=== PATIENT | male | born 1985 | race Caucasian/White ===

== ENCOUNTER 2024-06-26 22:37 | Emergency (ER) | payer SELFPAY ==
[2024-06-26 22:39] VITALS: BP 124/93
[2024-06-26 23:11] VITALS: BMI 28.6
--- NOTE | 2024-06-26 23:16 | ED.GENMED ---
History of Present Illness
General
Chief Complaint: Dental Problem
Source: patient
Time Seen by Provider: 06/26/24 23:07
History of Present Illness
History of Present Illness:
39-year-old male with past medical history of ADHD presenting to the emergency department for evaluation of left lower jaw and tooth pain that has been ongoing for about 2 weeks, acutely worse over the last 24 hours. Patient does not have medical
or dental insurance but did go to a dental clinic last week where he was diagnosed with a cracked tooth and was recommended to have tooth extraction and root canal however patient unable to afford at this present time. Patient did complete a course
of amoxicillin and states pain did get better for a few days but returned prompting him to come to the ER this evening. Patient has been taking NSAIDs with minimal relief. Denies any fevers or any infectious symptoms otherwise.
Past History
Past History
ED Past Medical History: Psychiatric
ED Past Surgical History: Orthopedic
Social History
Tobacco: Non-smoker
Alcohol: Occasional
Drug: None
Personal: Single
Living: with family
Review of Systems
Review of Systems
All Other Systems: ROS reviewed and negative except as documented in HPI and ROS
Phy Exam
Physical Exam
Physical Exam:
GENERAL: Alert , in no apparent distress
EYE: conjunctiva clear
Head: Normocephalic atraumatic
NECK: Supple, no lymphadenopathy
ENT: mmm. Cracked left posterior lower molar through the enamel exposing the pulp/nerve. No abscess
LUNGS: no acute respiratory distress
NEUROLOGICAL: Alert and oriented
SKIN: Warm and dry, skin intact.
MUSCULOSKELETAL: well perfused.
PSYCH: Normal and appropriate interaction.
Scores
Heart Failure Risk
Heart Failure Risk Score: Not Applicable
Heart Score for Chest Pain Patients
STEMI patient?: Not applicable
Withdrawal Assessment of Alcohol
Withdrawal Assessment Completed?: Not applicable
Course
Orders/Labs/Results
Orders:
Orders
06/26/24 23:16
Oxycodone/Acetaminophen [Percocet 5/325] 1 tablet PO NOW STA
Vital Signs
Initial and Last Documented VS:
Initial Vital Signs
Temp Pulse Resp BP Pulse Ox
98.2 F 92 16 124/93 98
06/26/24 22:39 06/26/24 22:39 06/26/24 22:39 06/26/24 22:39 06/26/24 22:39
Last Documented Vital Signs
Temp Pulse Resp BP Pulse Ox
98.2 F 92 16 124/93 98
06/26/24 22:39 06/26/24 22:39 06/26/24 22:39 06/26/24 22:39 06/26/24 22:39
MDM/Problems Addressed
Differential Diagnosis Includes:
Cracked tooth, dental caries, dental abscess, no symptoms or findings to suggest Ridge's angina
MDM/Problems Addressed:
39-year-old male presented to ER due to dental pain secondary to a cracked left lower molar. Exam does show the cracked tooth exposing the dentin/pulp. Explained to patient that unable to provide any further dental care here, recently completed
antibiotics so hesitant to restart a second antibiotic. Will treat at this time with short-term course of Percocet. Patient advised on close follow-up with dentist. Return precautions discussed. Stable for discharge home.
*Pulse Oximetry
Patient hypoxic: no
*Critical Care Note
Total Time (30-74mins, 75-104mins- exclusive of procedures): Not Applicable
ED Attending Note
-
Portions of this chart may have been created with voice recognition software.� Occasional wrong word or��sound alike� substitutions may have occurred due to the inherent limitations of voice recognition software.
Discharge Plan
Departure
Patient Disposition: Home (Routine Discharge)
Date of Disposition: 06/26/24
Time of Disposition: 23:16
Patient with high blood pressure during this ER visit?: No
Discharge Problem:
Broken or cracked tooth, nontraumatic
Instructions: Tooth Decay, Adult (DC)
Prescriptions:
New
oxycodone-acetaminophen [Percocet] 5-325 mg tablet
1 tab PO Q6HPRN PRN (Reason: pain) Qty: 6 0RF
No Action
dextroamphetamine-amphetamine [Adderall] 30 MG tablet
30 mg PO DAILY
oxycodone-acetaminophen 5 MG/325 MG tablet
1 tab PO Q4HPRN PRN (Reason: pain) Qty: 5 0RF
Referrals:
UNKNOWN - PT DOES,NOT KNOW [Family Provider] -
Interventions
Interventions:
*Risk Screen - Suicide Last Done: 06/26/24 22:39
*General Assessment Last Done: 06/26/24 23:20
*Neglect/Abuse Screening Last Done: 06/26/24 23:13
*ED- Fall Risk Assessment Last Done: 06/26/24 23:12
*ED COVID-19 Vaccine History Last Done: 06/26/24 23:12
*Nursing Disposition Last Done: 06/26/24 23:24
Discharge Date and Time
Discharge Date/Time: 06/26/24 23:25
Print Language: [place]
[2024-06-26] MEDS: PERCOCET 5/325 1 TABLET PO (23:19)
== END 2024-06-26 23:25 | disposition home or self-care (01) ==
LOC: EMR 22:37
PROVIDERS: EMERGENCY PHYSICIAN Emergency Medicine
DX: K08.89 Other specified disorders of teeth and supporting structures (principal); K03.81 Cracked tooth; F90.9 Attention-deficit hyperactivity disorder, unspecified type; Z59.71 Insufficient health insurance coverage
CPT/HCPCS: 99283

== ENCOUNTER 2025-01-04 18:02 | Emergency (ER) | payer SELFPAY ==
[2025-01-04 18:06] VITALS: BP 143/97
[2025-01-04 18:23] LABS: Hematocrit 39.6 % (39.0-52.0); Hemoglobin 13.5 g/dL (13.0-18.0); Mean Corp Hgb Conc. 34.1 g/dL (33.0-37.0); Mean Corpuscular Volume 90.6 fL (80.0-94.0); Platelet Count 228 10^3/uL (130-400); Red Cell Dist. Width 12.6 % (11.5-14.5)
[2025-01-04 18:37] LABS: ALT (SGPT) 53 U/L (0-50); AST (SGOT) 37 U/L (17-59); Albumin 4.5 g/dl (3.5-5.0); Alkaline Phosphatase 48 U/L (38-126); Blood Urea Nitrogen 16 mg/dl (9-20); Calcium 9.5 mg/dl (8.4-10.2); Carbon Dioxide 28 mmol/L (22-30); Chloride 104 mmol/L (98-107); Glucose 95 mg/dl (70-99); Potassium 4.3 mmol/L (3.5-5.1); Sodium 136 mmol/L (135-145); Total Protein 7.4 g/dl (6.3-8.2); eGFR > 60.00
[2025-01-04 18:42] LABS: COVID-19 Antigen Negative (Negative)
[2025-01-04 18:46] LABS: Nucleated Red Blood Cells % 0 % (-)
[2025-01-04 22:06] VITALS: BMI 26.2
[2025-01-04 22:09] VITALS: BP 129/87
--- NOTE | 2025-01-04 22:18 | ED.GENMED ---
History of Present Illness
General
Chief Complaint: Fatigue
Source: patient
Exam Limitations: none
Time Seen by Provider: 01/04/25 21:27
Nursing documentation reviewed up to this point in time: agreed with
History of Present Illness
History of Present Illness:
Patient is a 39-year-old male who presents to the emergency department for evaluation of fatigue X 1 week. 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 He reports on
and off chills and sweats despite the cooler weather at work. He he feels that heavy lifting that was once relatively easy has become much more difficult over the past week. No exertional chest pain or shortness of breath.
He denies any fever, headache, or neck pain. He denies any productive cough, abdominal pain or vomiting, urinary symptoms. He has not noticed any bug bites or rashes.
He does have some concern for Lyme disease as he is a skip hoist engineer and works outdoors however has not had any known contact with ticks.
No known sick contacts.
Past History
Past History
ED Past Medical History: Psychiatric
ED Past Surgical History: Orthopedic
Social History
Tobacco: Non-smoker
Alcohol: Occasional
Drug: None
Personal: Single
Living: with family
Review of Systems
Review of Systems
Allergies reviewed?: Yes
All Other Systems: ROS reviewed and negative except as documented in HPI and ROS
Phy Exam
Physical Exam
Physical Exam:
Vitals: Hypertensive, otherwise vital signs stable. Afebrile
General: Patient is very well appearing, no acute distress. Nontoxic appearing
Skin: Small area of contact dermatitis on right volar wrist without any overlying cellulitis. No other rashes noted.
Head: Normocephalic, atraumatic
Eyes: Sclera nonicteric. EOMs intact. No nystagmus.
Throat: Protecting airway
Neck: Normal ROM, no cervical spine tenderness, no meningismus
Cardiac: Regular rate and rhythm, no murmurs.
Pulm: Normal respiratory effort, no wheezes, rales, rhonchi heard on exam
Abdomen: Abdomen soft and nontender.
Extremities: No evidence of cyanosis or edema. Bilateral upper and lower extremities atraumatic and nontender with full range of motion and joints. No obvious joint effusions or erythema.
Neuro: AAOx3. Grossly intact.
Psychiatric: Normal affect.
Course
Orders/Labs/Results
Orders:
Orders
01/04/25 18:15
COVID-19 Antigen Urgent
Source: Nasal Swab
Complete Blood Count/With Diff Urgent
Comprehensive Metabolic Panel Urgent
Creatine Phosphokinase Urgent
Comment: ADD ON
Lyme Progressive Urgent
Monotest Urgent
Comment: ADD ON
01/04/25 21:27
Add On- LAB Urgent
Tests Added?: monospot
01/04/25 22:18
Add On- LAB Urgent
Tests Added?: CPK
Electrocardiogram (*1) Urgent
Reason for Study: Fatigue / Weakness
EKG- Treatment ONCE
01/04/25 22:25
Babesia Smear [Blood Parasites] Urgent
JORGE Source: Blood/Venous
Specimen Description:
01/04/25 23:05
0.9% Sodium Chloride 1000 ml [Nss] 1,000 ml IV BOLUS
Abnormal Lab Results
01/04/25
18:15
RBC 4.37 L 10^6/uL
(4.70-6.10)
Neutrophils % 27.9 L %
(42.2-75.2)
Lymphocytes % 58.5 H %
(20.5-51.1)
Monocytes % 9.6 H %
(1.7-9.3)
ALT 53 H U/L
(0-50)
Creatine Kinase 300 H U/L
(55-170)
01/04/25 18:15
01/04/25 18:15
Vital Signs
Initial and Last Documented VS:
Initial Vital Signs
Temp Pulse Resp BP Pulse Ox
98.0 F 73 16 143/97 97
01/04/25 18:06 01/04/25 18:06 01/04/25 18:06 01/04/25 18:06 01/04/25 18:06
Last Documented Vital Signs
Temp Pulse Resp BP Pulse Ox
97.9 F 58 18 140/98 99
01/04/25 23:20 01/04/25 23:20 01/04/25 23:20 01/04/25 23:20 01/04/25 23:20
MDM/Problems Addressed
Differential Diagnosis Includes:
Not limited to: Acute dehydration, viral illness, tickborne illness, rhabdomyolysis, cardiac arrhythmia, etc.
MDM/Problems Addressed:
39 year-old male presenting with one week of fatigue and diffuse joint pains. No headache, neck pain, fever, rash. 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 Vitals and physical exam as above. Patient well appearing and nontoxic. Abdomen benign.
Cardio/pulmonary assessment unremarkable. No evidence of rash. He has no obvious joint effusions with full range of motion.
Differential broad. Considered viral illness, dehydration, tick borne illness, etc.
ED plan: labs, viral studies, CK. Will send test for Lyme disease and babesiosis.
Update: CBC and chemistry without clinically significant abnormalities. Viral studies negative include Covid, influenza, mono. CPK was mildly elevated to 300. This is likely secondary to dehydration, which may also be contributing to patients other
symptoms. Will give liter of IV fluids.
Update: Patient receive 1L IVF and feels well. No evidence of rash or current infectious process. Do not feel antibiotics indicated at this time. Will discharge with instructions to stay well hydrated. Reviewed return precautions. Will contact
patient if lyme or babesiosis is positive. Patient comfortable with plan.
Chronic conditions affecting care:
N/A
Acute Exacerbation and/or Progression of Chronic Illness:
N/A
*Pulse Oximetry
SaO2: 100
Oxygen Mode of Delivery: Room air
Patient hypoxic: no
*EKG
Interpreted by ED Provider?: NA
*Health Administration Teacher Interpretation
Rate: Health Administration Teacher- N/A
*Critical Care Note
Total Time (30-74mins, 75-104mins- exclusive of procedures): Not Applicable
ED Attending Note
-
Portions of this chart may have been created with voice recognition software.� Occasional wrong word or��sound alike� substitutions may have occurred due to the inherent limitations of voice recognition software.
Discharge Plan
Departure
Patient Disposition: Home (Routine Discharge)
Date of Disposition: 01/04/25
Time of Disposition: 23:19
Patient with high blood pressure during this ER visit?: Yes
Condition: Good
Covid-19: Negative COVID-19
Discharge Problem:
Fatigue, Dehydration
Instructions: Fatigue (DC), Dehydration in adults - ED (DC), BLOOD PRESSURE
Prescriptions:
No Action
dextroamphetamine-amphetamine [Adderall] 30 MG tablet
30 mg PO DAILY
oxycodone-acetaminophen 5 MG/325 MG tablet
1 tab PO Q4HPRN PRN (Reason: pain) Qty: 5 0RF
oxycodone-acetaminophen [Percocet] 5-325 mg tablet
1 tab PO Q6HPRN PRN (Reason: pain) Qty: 6 0RF
Referrals:
Joseph Erazo DO [Family Provider, Internal Medicine] - Follow up in 5-7 days
Activity Restrictions/Additional Instructions:
RETURN TO THE EMERGENCY DEPARTMENT WITH ANY FEVERS, SEVERE HEADACHE OR NECK PAIN, ABDOMINAL/BACK PAIN, DIFFICULTIES WITH URINATION, SIGNS OF SEVERE DEHYDRATION, WORSENING IN CURRENT SYMPTOMS, OR ANY OTHER SYMPTOMS CONCERNING TO YOU
- As discussed�your viral studies including mono, COVID, influenza were negative in the emergency department. We did send studies for Lyme disease and babesiosis, and we will contact you if these are positive.
- You were given a liter of IV fluids. Please stay well-hydrated at home.
- Follow-up with your primary care provider for repeat lab work and to ensure values normalize
Monitor your symptoms closely and return to the emergency department with any acute worsening/new symptoms or any other concerns
Interventions
Interventions:
*Risk Screen - Suicide Last Done: 01/04/25 22:10
*General Assessment Last Done: 01/04/25 22:10
*Neglect/Abuse Screening Last Done: 01/04/25 22:10
*ED- Fall Risk Assessment Last Done: 01/04/25 22:10
*ED COVID-19 Vaccine History Last Done: 01/04/25 22:10
*Nursing Disposition Last Done: 01/05/25 00:10
Discharge Date and Time
Discharge Date/Time: 01/05/25 00:17
Print Language: [id number]
[2025-01-04 23:20] VITALS: BP 140/98
[2025-01-04] MEDS: NSS 1000 IV (23:20)
[2025-01-05 14:56] LABS: Lyme Antibody Screen, EIA Negative (Negative)
== END 2025-01-05 00:17 | disposition home or self-care (01) ==
LOC: EMR 18:02
PROVIDERS: Emergency Medicine; EMERGENCY PHYSICIAN Emergency Medicine; FAMILY PHYSICIAN Internal Medicine
DX: E86.0 Dehydration (principal); R53.83 Other fatigue; Z11.52 Encounter for screening for COVID-19
CPT/HCPCS: 99284; 96360; 80053; 82550; 85025; 86308; 86618; 87015; 87207; 87811; 93005